=== PATIENT | male | born 1945 | race Caucasian/White ===

== ENCOUNTER 2018-01-31 14:46 | Emergency (ER) | payer MEDICARE, BC ==
[~2018-01-31] VITALS: Ht 182.9 cm; Wt 85.5 kg
[~2018-01-31 14:46] MED LIST: ATENOLOL PO; BLOOD PRESSURE PO; CATAPRES0.1 MG PO; COUMADIN7.5 MG PO; LOTREL 10/20 CA1 CAP PO; LOVENOX INJ100 MG/ML SQ; TENORMIN50 MG PO
[2018-01-31 14:55] VITALS: Ht 182.9 cm; Wt 85.5 kg
[2018-01-31] MEDS ORDERED: COREG6.25 MG PO (14:58)
[2018-01-31 15:25] LABS: APPEARANCE CLEAR (CLEAR); COLOR YELLOW (YELLOW); GLUCOSE 100 mg/dL (NEGATIVE); KETONE SMALL mg/dL (NEGATIVE); NITRITE POSITIVE (NEGATIVE); PROTEIN NEGATIVE (NEGATIVE)
[2018-01-31 15:26] LABS: BILIRUBIN NEGATIVE (NEGATIVE); UROBILINOGEN NORMAL (NORMAL); WHITE CELLS - URINE 0-5 /hpf (0-5)
[2018-01-31 16:13] LABS: BASOPHILS 0.1 % (0-2); EOSINOPHILS 0 % (0-7); HEMOGLOBIN 17.1 g/dL (13.5-17.5); IMMATURE GRANULOCYTES 0.5 % (0-5); LYMPHOCYTES 50.6 % (15-50); MCH 31.3 pg (26.0-34.0); MCHC 34.9 g/dL (31.0-37.0); MCV 89.6 fL (80.0-100.0); MEAN PLATELET VOLUME 10.9 fL (7.4-10.4); MONOCYTES 3.8 % (2-11); PLATELET COUNT 108 10x3/uL (130-400); RBC 5.47 10x6/uL (4.20-6.10); WBC 19.5 10x3/uL (4.8-10.8)
[2018-01-31 16:45] LABS: ANION GAP 14.5 mmol/L (8-16); BILIRUBIN - TOTAL 1.09 mg/dL (0.2-1.3); CALCIUM 9.1 mg/dL (8.5-10.1); CARBON DIOXIDE 25.3 mmol/L (21.0-32.0); CREATININE - SERUM 1.3 mg/dL (0.6-1.3); POTASSIUM - SERUM 3.8 mmol/L (3.5-5.1); PROTEIN - SERUM 8.1 g/dL (6.4-8.2)
[2018-01-31] MEDS ORDERED: CIPRO250 MG PO (16:56)
[2018-01-31] MEDS ORDERED: ZOFRAN4 MG PO (16:56)
[2018-01-31 17:21] VITALS: BP 135/73
== END 2018-01-31 17:14 | disposition home or self-care (01) ==
LOC: D.ER 14:46
PROVIDERS: Emergency Medicine
DX: N20.0 Calculus of kidney (principal); R10.9 Unspecified abdominal pain; N39.0 Urinary tract infection, site not specified; I10 Essential (primary) hypertension; D68.51 Activated protein C resistance; Z85.6 Personal history of leukemia

== ENCOUNTER → 2018-07-11 14:00 | Outpatient (CLI) | payer MEDICARE, BC ==
[2018-01-31 14:55] VITALS: BMI 25.5
[~2018-07-11 14:00] MED LIST changes: +CIPRO250 MG PO; +COREG6.25 MG PO; +ZOFRAN4 MG PO
== END | disposition home or self-care (01) ==
LOC: D.CT 07-10 12:54
PROVIDERS: ATTEND Thoracic Surgery (Cardiothoracic Vascular Surgery)
DX: I71.4 Abdominal aortic aneurysm, without rupture (principal)